=== PATIENT | female | born 1975 ===

== ENCOUNTER 2020-03-30 11:09 | Outpatient (CLI) | payer BC ==
--- NOTE | 2020-03-30 13:04 | CT ---
EXAM: CT ABDOMEN AND PELVIS HISTORY: Left-sided abdominal pain. Acute diarrhea. Symptoms since Monday night/Monday morning COMPARISON: None. Procedure: Multiple contiguous axial images were obtained and a CT of the abdomen and pelvis with IV contrast. C oronal reformats were performed. FINDINGS: Lower Chest: within normal limits. Vessels: Normal caliber aorta. No periaortic fat stranding Heart: Normal heart size. No significant pericardial fluid. Abdomen: Portal vein:Patent Gallbladder: No calcified gallstones. Normal caliber wall. Liver: within normal limits. Pancreas: within normal limits. Spleen: within normal limits. Adrenals: within normal limits. Kidneys: Symmetric enhancement. No obstructive uropathy. Peritoneum: No ascites or free air, no fluid collection. Bowel: Gastric mucosa, duodenum and multiple normal caliber small bowel loops have a normal appearanc e. There is fecal material in a nondistended, nondilated colon. There is decompression of the sigmoid colon with diverticulosis. No diverticulitis. No caliber appendix. Mesentery and Retroperitoneum: No enlarged mesenteric or retroperitoneal lymph nodes. Abdominal Wall: within normal limits. Pelvis: Reproductive Organs: Reproductive organs are unremarkable. Pelvis: No mass, lymphadenopathy, free air. Free fluid in the pelvis is likely physiologic filling Bladder: within normal limits. Bones: within normal limits. IMPRESSION: 1. No acute abnormality in the abdomen or pelvis. 2. No evidence of bowel obstruction. 3. Normal caliber appendix. 4. Small amount of free fluid in the pelvis, likely physiologic. 5. Diverticulosis in the sigmoid colon. No diverticulitis.
[2020-03-30] MEDS ORDERED: Iopamidol 370 76% 100 ML VIAL ONE (13:50)
== END 2020-03-30 11:10 | disposition home or self-care (01) ==
LOC: CT 11:09
PROVIDERS: ATTEND Physician Assistant Medical
DX: R10.9 Unspecified abdominal pain (principal); R19.7 Diarrhea, unspecified; K57.30 Diverticulosis of large intestine without perforation or abscess without bleeding
CPT/HCPCS: 36415; 74177; 80053; 82705; 83630; 83690; 84439; 84443; 85025; 87045; 87046; 87177; 87324; 87449; Q9967